=== PATIENT | male | born 1980 | race Two or more races ===

== ENCOUNTER 2022-12-21 16:43 | Emergency (ER) | payer OTHER ==
[~2022-12-21] VITALS: Ht 180.3 cm; Wt 99.8 kg
[2022-12-21] MEDS ORDERED: SULF1TAB48 PO ×2 (16:58→17:03)
[2022-12-21] MEDS ORDERED: CEPH500C2 PO ×2 (16:58→17:03)
[2022-12-21 17:34] VITALS: BP 143/75; TEMP 98.2; O2SAT 97
== END 2022-12-21 17:35 | disposition home or self-care (01) ==
LOC: ER 16:50
DX: L03.116 Cellulitis of left lower limb (principal); L03.115 Cellulitis of right lower limb; F17.210 Nicotine dependence, cigarettes, uncomplicated; Z79.899 Other long term (current) drug therapy
CPT/HCPCS: A4663